=== PATIENT | male | born 1990 | race Caucasian/White ===

== ENCOUNTER 2017-11-06 23:02 | Emergency (ER) | payer OTHER ==
[2017-11-07] MEDS ORDERED: LIDOCAINE 1% INJ-PF (10 MG/ML) 30 ML SDV INJ ONE (00:29)
[2017-11-07] MEDS ORDERED: HYDROCODONE/ACETAMINOPHEN 5-325 MG TABLET PO ONE (00:37)
--- NOTE | 2017-11-07 00:38 | ER Document Report ---
ED Wound - General Chief Complaint: Laceration Stated Complaint: THUMB LACERATION Time Seen by Provider: 11/07/17 00:29 Notes: Patient is a 27-year-old male that comes to the emergency department for chief complaint of laceration to the left thumb and thumbnail. He states he was using push saw on the table and he accidentally nicked his thumb. He is up-to- date on his tetanus within 5 years. He denies any other injuries. He denies any daily medications or known medical problems. TRAVEL OUTSIDE OF THE [place] IN LAST 30 DAYS: No - Related Data Allergies/Adverse Reactions: No Known Allergies Allergy (Verified 11/06/17 23:02) Past Medical History - General Information source: Patient - Social History Smoking Status: Never Smoker Drug Abuse: None Lives with: Spouse/Significant other Family History: Reviewed & Not Pertinent - Medical History Medical History: Negative Surgical Hx: Negative - Immunizations Hx Diphtheria, Pertussis, Tetanus Vaccination: Yes Review of Systems - Review of Systems Constitutional: No symptoms reported EENT: No symptoms reported Cardiovascular: No symptoms reported Respiratory: No symptoms reported Gastrointestinal: No symptoms reported Genitourinary: No symptoms reported Male Genitourinary: No symptoms reported Musculoskeletal: See HPI Skin: See HPI Hematologic/Lymphatic: No symptoms reported Neurological/Psychological: No symptoms reported Physical Exam - Vital signs Vitals: Temp Pulse Resp BP Pulse Ox 98.0 F 68 20 142/91 H 100 11/06/17 23:30 11/06/17 23:30 11/06/17 23:30 11/06/17 23:30 11/06/17 23:30 - Notes Notes: GENERAL: Alert, interacts well. No acute distress. HEAD: Normocephalic, atraumatic. EYES: Pupils equal, round, and reactive to light. Extraocular movements intact. NECK: Full range of motion. Supple. Trachea midline. LUNGS: Clear to auscultation bilaterally, no wheezes, rales, or rhonchi. No respiratory distress. HEART: Regular rate and rhythm. No murmur ABDOMEN: Soft, non-tender. Non-distended. Bowel sounds present in all 4 quadrants. EXTREMITIES: There is a tiny superficial laceration over the left dorsal lateral thumb next to the nail, there is an irregular cut over the nail that is questionably into the nailbed, no significant bleeding, no open or wounds otherwise, normal sensation and capillary refill, normal range of motion of the thumb, no other traumatic findings. Hand, wrist, forearm exam normal otherwise. BACK: no cervical, thoracic, lumbar midline tenderness. No saddle anesthesia, normal distal neurovascular exam. NEUROLOGICAL: Alert and oriented x3. Normal speech. SKIN: Warm, dry, normal turgor. No rashes or lesions noted. Course - Re-evaluation Re-evalutation: Appears to be just a superficial laceration over the top of the nail and not deep into the nailbed. Tiny superficial wound over the side of the nail which stopped bleeding on its own and did not require closure. X-ray does not show fracture, foreign body, shows mild soft tissue swelling. On reexamination wound has not started bleeding again. Cleaned with surgical cleanser, applied Xeroform bulky dressing, discussed wound care, follow-up, return precautions. Patient states understanding and agreement. - Vital Signs Vital signs: Temp Pulse Resp BP Pulse Ox 98.0 F 68 20 142/91 H 100 11/06/17 23:30 11/06/17 23:30 11/06/17 23:30 11/06/17 23:30 11/06/17 23:30 Discharge - Discharge Clinical Impression: Thumb laceration Qualifiers: Encounter type: initial encounter Damage to nail status: with damage Foreign body presence: without foreign body Laterality: left Qualified Code(s): S61.112A - Laceration without foreign body of left thumb with damage to nail, initial encounter Condition: Stable Disposition: HOME, SELF-CARE Additional Instructions: X-ray of the thumb does not show any concerning findings. Nail will slowly heal, keep current dressing on for 2 days, afterwards simply apply topical antibiotic with Band-Aid or dressing. Clean daily had removal of initial bandage with soap and water, dab dry. Follow-up with primary care. Return for any signs of infection including redness, swelling, discolored discharge, fever, or any other concerning or worsening symptoms. Forms: Return to Work
[2017-11-07] MEDS ORDERED: IBUPROFEN 600 MG TABLET PO ONE (00:45)
--- NOTE | 2017-11-07 01:09 | RADIOLOGY REPORT (SQ) ---
3 VIEWS OF THE LEFT THUMB HISTORY: Thumb injury to nail. COMPARISON: None. FINDINGS/IMPRESSION: Normal bone mineralization. No acute fracture or malalignment. Joint spaces are preserved. No radiopaque foreign body. Mild soft tissue swelling of the thumb. No cortical erosion or periosteal reaction to suggest acute osteomyelitis.
[2017-11-07 01:54] VITALS: BP 134/84
== END 2017-11-07 01:55 | disposition home or self-care (01) ==
LOC: ER 23:02
DX: S61.112A Laceration without foreign body of left thumb with damage to nail, initial encounter (principal); M79.89 Other specified soft tissue disorders; W31.2XXA Contact with powered woodworking and forming machines, initial encounter
CPT/HCPCS: 99283